=== PATIENT | male | born 1995 | race Caucasian/White ===

== ENCOUNTER 2021-04-05 16:00 | Outpatient (CLI) | payer OTHER, SELFPAY ==
[2021-04-05 16:26] LABS: SARS-CoV-2 Ag Negative (Negative)
== END 2021-04-05 16:01 | disposition home or self-care (01) ==
LOC: CHSLAB 16:07
PROVIDERS: PCP Physician Assistant; Visit Provider Physician Assistant
DX: Z20.822 Contact with and (suspected) exposure to COVID-19 (principal)
CPT/HCPCS: 87426; C9803

== ENCOUNTER 2021-04-06 00:43 | Emergency (ER) | payer SELFPAY ==
--- NOTE | ~2021-04-06 | XR_ITS ---
EXAMINATION: XR chest 1V portable DATE: 04/06/2021 01:15 INDICATION: Chest pain. TECHNIQUE: A single frontal view of the chest was obtained on 2 radiographs. COMPARISON: None. FINDINGS: The chest demonstrates clear lungs without pneumonia, pleural effusion, or pneumothorax. Th e heart size is normal. IMPRESSION: 1. No acute cardiopulmonary disease. Reviewed, dictated and finalized at location A.
[2021-04-06 01:00] VITALS: PULSE 63
--- NOTE | 2021-04-06 01:04 | ED.CHESTPAIN ---
HPI - Chest Pain General Chief Complaint: Chest Pain Stated Complaint: chest pain Time Seen by Provider: 04/06/21 01:04 Source: patient Mode of arrival: ambulatory Limitations: no limitations History of Present Illness HPI narrative: 25-year-old man was previously well comes in today complaining of sharp chest pain in his left lower chest that radiated to his left arm above the elbow. Patient states that it was severe but has since improved. It started about 4 hours ago. Patient states that yesterday he had some mild chest pain and noted that he has had a fever. He denies shortness of breath, nausea, vomiting, sore throat, nasal congestion, cough, abdominal pain, or known sick exposures. He states that he smokes marijuana and vapes but does not use alcohol, meth or cocaine. Patient states he has had some episodes of chest pain while running in the past. He denies syncopal episodes, lightheadedness or family history of sudden cardiac . MD complaint: chest pain Onset (ago): hour(s) (4) Timing of current episode: episodic Prior episodes: Yes Onset: during rest Pain location: left chest Pain radiation: left arm Severity: severe Quality: sharp Relieving factors: nothing Exacerbating factors: nothing Associated symptoms: fever Treatment prior to arrival: none Related Data Home Medications Medication Instructions Recorded Confirmed No Home Medications 04/06/21 04/06/21 Allergies Allergy/AdvReac Type Severity Reaction Status Date / Time No Known Allergies Allergy Verified 04/06/21 01:24 Review of Systems Review of Systems: All systems reviewed & are unremarkable except as noted in HPI and below Constitutional: Constitutional: Denies chills, Reports fatigue, Reports fever(s) and Denies weakness Eyes: Eyes: Denies change in vision and Denies photophobia ENT: Denies dysphagia, Denies nasal congestion and Denies sore throat Cardiovascular: Cardiovascular: Reports as per HPI, Reports chest pain and Reports radiating jaw, neck or arm pain Respiratory: Respiratory: Denies cough, Denies dyspnea and Denies wheezing Gastrointestinal: Gastrointestinal: Denies abdominal pain, Denies diarrhea, Denies nausea and Denies vomiting Genitourinary: Genitourinary: Denies dysuria and Denies urinary frequency Musculoskeletal: Musculoskeletal: Denies back pain, Denies arthralgias and Denies joint swelling Integumentary/Breasts: Skin/Breast: Denies pruritus, Denies erythema and Denies rash Neurologic: Denies vertigo, Denies dizziness and Denies syncope Hematologic/Lymphatic: Hematologic/Lymphatic: Denies easy bleeding and Denies easy bruising Allergic/Immunologic: Allergic/Immunologic: Denies lip swelling and Denies throat swelling [facility] Social History Social History (Updated 04/06/21 @ 01:17 by Eric Huerta MD) Smoking status: Former smoker Tobacco type: e-cigarettes/vaping Alcohol intake: never Substance use: current Substance use type: marijuana Exam Const: General: healthy appearing and alert Orientation/consciousness: patient oriented x3 Limitations: no limitations Other: Mildly anxious HENMT: Head: normal to inspection Ears: external ears normal, TM's normal bilaterally and EAC's normal General nose exam: Normal nares present Face and sinus: normal facial exam Mouth: Yes moist mucous membranes Throat: posterior oropharynx normal Eyes: Conjunctivae: conjunctivae normal EOM: EOMs intact bilaterally Neck: Neck: normal visual inspection and no lymphadenopathy Other: no crepitus or swelling Resp: Effort & Inspection: normal respiratory effort and not labored Auscultation: clear to auscultation bilaterally, no rales, no rhonchi and no wheezes Cardio: Rate: regular rate Rhythm: regular rhythm Heart sounds: no murmurs GI: Inspection: non-distended Auscultation: normal bowel sounds Other: nontender Skin: General skin exam: normal color, no jaundice and no pallor Rashes: no
--- NOTE | 2021-04-06 01:05 | ECG_ITS ---
Measurements Intervals [place] Rate: 58 P: -10 MA: 126 QRS: 43 QRSD: 108 T: 53 QT: 373 QTc: 367 Interpretive Statements SINUS BRADYCARDIA WITH MARKED SINUS ARRHYTHMIA INCOMPLETE RIGHT BUNDLE BRANCH BLOCK PEAKED T WAVES- CONSIDER HYPERKALEMIA OR ISCHEMIA ABNORMAL ECG Electronically Signed On 04-06-2021 10:01:29 CDT by Jayson Miranda D.O.
[2021-04-06 01:20] VITALS: BP 147/94; PULSE 61; RESP 18; TEMP 36.7; O2SAT 99
[2021-04-06 01:50] LABS: Basophils Absolute Auto 0.07 K/mm3 (0.00-0.10); Basophils Percent Auto 0.8 % (0.0-1.0); Eosinophils Percent Auto 5.7 % (1.0-6.0); Hematocrit 45.2 % (40.0-54.0); Immature Granulocyte Absolute 0.03 K/mm3 (0.00-0.00); Immature Granulocyte Percent A 0.3 % (0.0-0.0); Lymphocytes Absolute Auto 1.76 K/mm3 (1.10-4.50); Lymphocytes Percent Auto 20.2 % (18.0-42.0); Mean Corpuscular HGB Conc 35.4 g/dL (32.0-36.0); Mean Corpuscular Hemoglobin 29.4 pg (27.0-31.0); Mean Corpuscular Volume 82.9 fL (78.0-102.0); Mean Platelet Volume 10.6 fl (8.7-11.0); Monocytes Absolute Auto 0.57 K/mm3 (0.10-0.90); Monocytes Percent Auto 6.5 % (2.0-11.0); Neutrophils Absolute Auto 5.8 K/mm3 (1.7-7.2); Neutrophils Percent Auto 66.5 % (50.0-70.0); Platelet Count Result 202 K/mm3 (150-420); Red Blood Count 5.45 M/mm3 (4.70-6.10); Red Cell Distribution Width 12.2 % (11.6-14.4); White Blood Count 8.7 K/mm3 (4.8-10.8)
[2021-04-06 01:58] LABS: Alanine Aminotransferase 18 U/L (16-63); Albumin Level 4.7 g/dL (3.4-5.0); Alkaline Phosphatase 56 U/L (46-116); Anion Gap 12 mmol/L (8-16); Aspartate Amino Transferase < 10 U/L (15-37); Blood Urea Nitrogen 15 mg/dL (7-18); Calcium 9.8 mg/dL (8.5-10.1); Carbon Dioxide 27 mmol/L (21-32); Chloride 99 mmol/L (98-108); Estimated CRCL calculation 95 ml/min; Estimated Glomerular Filt Rate > 60; Glucose 86 mg/dL (70-99); Lactic Acid Reflex 0.9 mmol/L (0.4-2.0); Lipase 38 U/L (73-393); Osmolality Calculated 285 mOsm/kg (285-295); Potassium 3.4 mmol/L (3.5-5.1); Sodium 138 mmol/L (136-145); Total Protein 8.6 g/dL (6.4-8.2)
[2021-04-06 01:59] LABS: Troponin I < 4.0 ng/L (0.00-60.4)
[2021-04-06 02:01] LABS: D Dimer 0.19 mg/L (0.19-0.50); INR 1.1; Prothrombin Time 11.8 Seconds (9.50-12.10)
[2021-04-06 02:15] LABS: Influenza A QL RT-PCR Negative (Negative); Influenza B QL RT-PCR Negative (Negative); SARS-CoV-2 RNA PCR Negative (Negative)
[2021-04-06 02:43] LABS: Add Urine Microscopic? YES; Appearance Urine Clear (Clear); Bilirubin Urine 1+ (Negative); Blood Urine Negative (Negative); Color Urine Yellow (Yellow); Glucose Urine UA Negative (Negative); Ketones Urine 3+ (Negative); Leukocyte Esterase Ur Trace LEU/UL (Negative); Nitrate Urine Negative (Negative); Protein Urine Negative (Negative); Specific Grav Ur 1.025 (1.010-1.020)
[2021-04-06 02:50] LABS: Bacteria Urine 1+ /hpf; Mucus Urine Moderate /lpf; RBC Urine 0-2 /hpf (0-2)
[2021-04-06 02:54] LABS: Amphetamine Screen Urine Negative (Negative); Barbiturate Screen Urine Negative (Negative); Benzodiazepines Screen Urine Negative (Negative); Cannabinoid Screen Urine Positive (Negative); Cocaine Screen Urine Positive (Negative); Methadone Screen Urine Negative (Negative); Opiate Screen Urine Negative (Negative); Phencyclidine Screen Urine Negative (Negative)
[2021-04-06 03:05] VITALS: BP 120/80; PULSE 65; RESP 20; TEMP 36.6; O2SAT 99
--- NOTE | 2021-04-06 09:56 | PC.NURSE ---
Dr. Huerta requests to call pt this am to have him schedule an o/p echocardiogram. Dr. Huerta sent order over for this test. Attempted to call pt by calling phone number pt provided. Attempted x 2 to reach pt without success. Pts phone number that he provided is disconnected.
--- NOTE | 2021-04-06 10:00 | PC.NURSE ---
attempted to contact emergency contact to get in touch with pt and attempted pmd office without success.
== END 2021-04-06 03:11 | disposition home or self-care (01) ==
PROVIDERS: Emergency Provider Emergency Medicine; PCP Physician Assistant
DX: R07.89 Other chest pain (principal); R50.9 Fever, unspecified; Z20.822 Contact with and (suspected) exposure to COVID-19
CPT/HCPCS: 36415; 71045; 80053; 80307; 81001; 83605; 83690; 84484; 85025; 85380; 85610; 85730; 87040; 87502; 93005; 99283; 99284; C9803; U0003; U0005

== ENCOUNTER 2021-10-26 10:15 | Outpatient (CLI) | payer SELFPAY ==
--- NOTE | ~2021-10-26 | MR_ITS ---
EXAMINATION: MR shoulder LT wo con DATE: 10/26/2021 12:05 INDICATION: Left shoulder pain post shoulder dislocation. TECHNIQUE: Magnetic resonance imaging (MRI) of the left shoulder was performed without intravenous co ntrast. Sequences included axial PD-weighted FS FSE, coronal oblique PD-weighted FS FSE, coronal obli que T2-weighted FS FSE, sagittal PD-weighted FS FSE, and sagittal T1-weighted SE. COMPARISON: None. FINDINGS: Coracoacromial arch: The acromion undersurface is curved in morphology (type II). The coracoacromial ligament is normal. T here is mild soft tissue edema surrounding the otherwise normal appearing acromioclavicular joint whi ch could represent sequela of a subacute low-grade chromic clavicular joint separation. The coracocla vicular ligament is normal. Rotator cuff: The supraspinatus, infraspinatus and teres minor tendons are normal. The subscapularis tendon is norm al. Normal rotator cuff muscle bulk and signal. Biceps tendon, glenoid labrum and glenohumeral cartilage: Long head of the biceps tendon is normal. Glenoid labrum is normal. Glenohumeral cartilage is normal. Fluid: Physiologic amount of fluid in the glenohumeral joint and biceps tendon sheath. No loose osteochondra l bodies. No abnormal fluid signal at the subacromial/subdeltoid bursa to suggest bursitis. Bones: Normal marrow signal with no edema, fracture or abnormal marrow replacing process. IMPRESSION: 1. Soft tissue edema surrounding the otherwise normal acromioclavicular joint which is suspicious for recent low-grade acromioclavicular joint separation. Otherwise unremarkable left shoulder MRI. Reviewed, dictated and finalized at location B. GER OF PATIENT IMPRESSION: 1. Soft tissue edema surrounding the otherwise normal acromioclavicular joint w hich is suspicious for recent low-grade acromioclavicular joint separation. Oth erwise unremarkable left shoulder MRI.
== END 2021-10-26 10:16 | disposition home or self-care (01) ==
LOC: CHSIMG 10:18
PROVIDERS: PCP Physician Assistant; Visit Provider Physician Assistant
DX: S43.015A Anterior dislocation of left humerus, initial encounter (principal)
CPT/HCPCS: 73221

== ENCOUNTER 2022-05-30 22:54 | Emergency (ER) | payer SELFPAY ==
--- NOTE | ~2022-05-30 | XR_ITS ---
EXAMINATION: XR chest 1V portable DATE: 05/30/2022 23:29 INDICATION: Chest pain. TECHNIQUE: A single frontal view of the chest was obtained. COMPARISON: Chest single view 04/06/2021 FINDINGS: The chest demonstrates clear lungs without pneumonia, pleural effusion, or pneumothorax. Th e heart size is normal. IMPRESSION: 1. No acute cardiopulmonary disease. Reviewed, dictated and finalized at location A.
[2022-05-30 23:05] VITALS: BP 128/84; PULSE 80; RESP 18; TEMP 37; O2SAT 100
--- NOTE | 2022-05-30 23:13 | ED.CHESTPAIN ---
HPI - Chest Pain General Chief Complaint: Chest Pain Stated Complaint: chest pain Time Seen by Provider: 05/30/22 23:14 Source: patient Mode of arrival: ambulatory Limitations: no limitations History of Present Illness HPI narrative: 26-year-old male with a history of smoking/ vaping, marijuana use presents to the ER with -- left chest pain since last night. Pain was unprovoked and came on at rest. No radiation of the pain. No nausea/ vomiting. No shortness of breath. Pain is worse on deep breathing. MD complaint: chest pain Onset (ago): day(s) ( Started last night) Timing of current episode: constant Prior episodes: Yes Onset: during rest Pain location: left chest Pain radiation: none Severity: moderate Quality: sharp Relieving factors: nothing Exacerbating factors: nothing Treatment prior to arrival: none Risk Factors Coronary artery disease risk factors: smoking history Thoracic aortic dissection risk factors: none Related Data Home Medications Medication Instructions Recorded Confirmed No Home Medications 04/06/21 05/30/22 Allergies Allergy/AdvReac Type Severity Reaction Status Date / Time No Known Allergies Allergy Verified 04/06/21 01:24 Review of Systems Review of Systems: All systems reviewed & are unremarkable except as noted in HPI and below Constitutional: Constitutional: Reports as per HPI and Reports no additional constitutional complaints Eyes: Eyes: Reports as per HPI and Reports no additional eye complaints ENT: Reports system reviewed and no additional complaints, except as documented and Reports as per HPI Cardiovascular: Cardiovascular: Reports as per HPI, Reports no additional cardiovascular complaints and Reports chest pain Respiratory: Respiratory: Reports as per HPI and Reports no additional respiratory complaints Gastrointestinal: Gastrointestinal: Reports as per HPI and Reports no additional gastrointestinal complaints Genitourinary: Genitourinary: Reports no additional male genitourinary complaints and Reports as per HPI Musculoskeletal: Musculoskeletal: Reports no additional musculoskeletal complaints and Reports as per HPI Integumentary/Breasts: Skin/Breast: Reports system reviewed and no additional complaints, except as docu and Reports as per HPI Neurologic: Reports system reviewed and no additional complaints, except as documented and Reports as per HPI Psychiatric: Psychiatric: Reports no additional psychiatric complaints and Reports as per HPI Endocrine: Endocrine: Reports no additional endocrine complaints and Reports as per HPI Hematologic/Lymphatic: Hematologic/Lymphatic: Reports no additional hematologic/lymphatic complaints and Reports as per HPI Allergic/Immunologic: Allergic/Immunologic: Reports no additional allergic/immunologic complaints and Reports as per [facility] Social History Social History Smoking status: Former smoker Tobacco type: e-cigarettes/vaping Alcohol intake: never Substance use: current Substance use type: marijuana Exam Const: General: no acute distress Nutritional Appearance: thin Orientation/consciousness: patient oriented x3 Limitations: no limitations HENMT: Head: normal to inspection Ears: external ears normal General nose exam: Normal external nose present Face and sinus: normal facial exam Mouth: Yes Normal oral and palatal mucosa present Throat: posterior oropharynx normal Eyes: Conjunctivae: conjunctivae normal Pupils: Equal, round and reactive pupils present EOM: EOMs intact bilaterally Direct Ophthalmoscopy: no photophobia Neck: Neck: normal visual inspection, no lymphadenopathy and no meningeal signs Chest: Chest palpation & inspection: normal inspection of the chest and tenderness Other: tenderness over the left 3/4 costochondral junction Resp: Effort & Inspection: normal respiratory effort Auscultation: clear to auscultation bilateral
--- NOTE | 2022-05-30 23:21 | ECG_ITS ---
Measurements Intervals [place] Rate: 65 P: -15 CT: 137 QRS: 21 QRSD: 105 T: 30 QT: 356 QTc: 371 Interpretive Statements SINUS RHYTHM INCOMPLETE RIGHT BUNDLE BRANCH BLOCK ST ELEVATION IN DIFFUSE LEADS- PROBABLY EARLY REPOLARIZATION ABNORMALITY BORDERLINE ECG Electronically Signed On 05-31-2022 6:02:01 CDT by Jayson Miranda D.O.
[2022-05-30 23:39] LABS: Basophils Absolute Auto 0.04 K/mm3 (0.00-0.10); Basophils Percent Auto 0.6 % (0.0-1.0); Eosinophils Absolute Auto 0.16 K/mm3 (0.02-0.50); Eosinophils Percent Auto 2.2 % (1.0-6.0); Hematocrit 39.2 % (40.0-54.0); Hemoglobin 13.9 g/dL (14.0-18.0); Immature Granulocyte Absolute 0.02 K/mm3 (0.00-0.00); Immature Granulocyte Percent A 0.3 % (0.0-0.0); Lymphocytes Absolute Auto 1.62 K/mm3 (1.10-4.50); Lymphocytes Percent Auto 22.4 % (18.0-42.0); Mean Corpuscular HGB Conc 35.5 g/dL (32.0-36.0); Mean Corpuscular Hemoglobin 30.2 pg (27.0-31.0); Mean Corpuscular Volume 85.2 fL (78.0-102.0); Mean Platelet Volume 10.7 fl (8.7-11.0); Monocytes Absolute Auto 0.47 K/mm3 (0.10-0.90); Monocytes Percent Auto 6.5 % (2.0-11.0); Neutrophils Absolute Auto 4.9 K/mm3 (1.7-7.2); Platelet Count Result 175 K/mm3 (150-420); Red Cell Distribution Width 12.3 % (11.6-14.4); White Blood Count 7.2 K/mm3 (4.8-10.8)
[2022-05-30] MEDS: ASPIRIN 81 MG CHEWABLE TABLET 324 MG PO (23:49)
[2022-05-30 23:50] VITALS: BP 120/74; PULSE 78; RESP 18; O2SAT 100
[2022-05-30 23:58] LABS: Alanine Aminotransferase 20 U/L (16-63); Albumin Level 4.2 g/dL (3.4-5.0); Alkaline Phosphatase 48 U/L (46-116); Anion Gap 6 mmol/L (8-16); Aspartate Amino Transferase 10 U/L (15-37); Bilirubin,Total 0.5 mg/dL (0.00-1.00); Blood Urea Nitrogen 20 mg/dL (7-18); Calcium 9.2 mg/dL (8.5-10.1); Carbon Dioxide 30 mmol/L (21-32); Chloride 103 mmol/L (98-108); Estimated CRCL calculation 93 ml/min; Estimated Glomerular Filt Rate > 60; Glucose 86 mg/dL (70-99); Osmolality Calculated 289 mOsm/kg (285-295); Potassium 3.6 mmol/L (3.5-5.1); Sodium 139 mmol/L (136-145); Total Protein 7.5 g/dL (6.4-8.2); Troponin I 6.1 ng/L (0.00-60.4)
[2022-05-31] MEDS: KETOROLAC 30 MG/ML VIAL (*BKC) IM (00:30)
[2022-05-31 00:40] VITALS: BP 122/72; PULSE 74; RESP 18; TEMP 36.4; O2SAT 99
== END 2022-05-31 00:47 | disposition home or self-care (01) ==
PROVIDERS: Emergency Provider Internal Medicine Critical Care Medicine; PCP Physician Assistant
DX: M94.0 Chondrocostal junction syndrome [Tietze] (principal); R07.89 Other chest pain
CPT/HCPCS: 36415; 71045; 80053; 84484; 85025; 93005; 96372; 99284; A9270; J1885

== ENCOUNTER 2022-07-15 20:12 | Emergency (ER) | payer SELFPAY ==
--- NOTE | ~2022-07-15 | XR_ITS ---
EXAMINATION: XR ribs LT 2V w CXR 2V DATE: 07/15/2022 21:03 INDICATION: Left anterior mid to lower chest/rib pain TECHNIQUE: A frontal and lateral views of the chest and 3 views of the left ribs were obtained. COMPARISON: Chest radiograph dated FINDINGS: No rib fractures identified. No pneumothorax. No focal infiltrates, pleural effusion or pulmonary clair ma. Cardiomediastinal silhouette is normal. IMPRESSION: 1. Normal chest and rib radiographs. Reviewed, dictated and finalized at location A.
--- NOTE | 2022-07-15 20:15 | ED.GENADULT ---
HPI - General Adult General Chief complaint: Unspecified Stated complaint: ambulance Time Seen by Provider: 07/15/22 20:14 Source: patient, EMS and RN notes reviewed Mode of arrival: EMS Limitations: no limitations History of Present Illness HPI narrative: patient states he was at work when he had sudden onset of left lateral rib pain. Seemed to make him nauseous and feel dizzy. He said he felt hot he called an ambulance to come in for further evaluation. He said the pain made him feel short of breath. He denies any chest pain. He had 1 similar episode about 6 weeks ago was given some Toradol and told to stop smoking. He continues to vape and smoke marijuana daily. complaint: Left rib pain Onset (ago): hour(s) (2) Location: chest Severity: moderate Quality: stabbing and dull Pain Consistency: constant Relieving factors: none Exacerbating factors: none Associated symptoms: shortness of breath ( hurts to take a deep breath) Treatments prior to arrival: none Related Data Allergies Allergy/AdvReac Type Severity Reaction Status Date / Time No Known Allergies Allergy Verified 07/15/22 20:16 Review of Systems Review of Systems: All systems reviewed & are unremarkable except as noted in HPI and below Constitutional: Constitutional: Denies chills and Denies fever(s) Respiratory: Respiratory: Denies cough PMFSH Past Medical History Medical History (Updated 07/15/22 @ 21:12 by Dung Monroe MD) No active medical problems Surgical History Surgical History (Updated 07/15/22 @ 20:29 by Dung Monroe MD) No pertinent past surgical history Social History Social History Smoking status: Former smoker Tobacco type: e-cigarettes/vaping Alcohol intake: never Substance use: current Substance use type: marijuana Exam Const: General: healthy appearing, no acute distress and alert; No diaphoretic Nutritional Appearance: well nourished Orientation/consciousness: patient oriented x3 Limitations: no limitations HENMT: Head: normal to inspection Ears: external ears normal Eyes: Conjunctivae: conjunctivae normal Pupils: Equal, round and reactive pupils present EOM: EOMs intact bilaterally Neck: Neck: normal visual inspection Chest: Chest palpation & inspection: tenderness rib (Moderate) left mid-axillary line involving the 5th rib, involving the 6th rib and involving the 7th rib, left posterior-axillary line involving the 5th rib, involving the 6th rib and involving the 7th rib Resp: Effort & Inspection: normal respiratory effort Auscultation: clear to auscultation bilaterally Cardio: Rate: regular rate Rhythm: regular rhythm GI: GI Palp: Yes Soft to palpation and No Tenderness to palpation present (GI) Auscultation: normal bowel sounds Back/Spine/Pelvis: Cervical Spine: cervical ROM normal Thoracic/Lumbar Spine: thoraco-lumbar ROM normal Skin: General skin exam: normal color Rashes: no rashes Neuro: General: patient oriented x3, moves all extremities, no focal motor deficits and CN's II-XI intact bilaterally Speech: normal speech Gait exam (Neuro): Normal gait present Extrem: General: normal to inspection and no clubbing, cyanosis or edema Psych: Mental Status: mental status grossly normal Affect: normal affect Attitude: cooperative Medical Decision Making Differential Diagnosis Differential Diagnosis: I considered pneumonia, costochondritis, pleurisy, UTI, kidney stone. Discharge Plan Discharge Clinical Impression: Acute UTI Patient Disposition: Home, Self-Care Condition: Stable Instructions: Antibiotic Form, Urinary Tract Infection in Men (ED) Additional Instructions: use Tylenol and or Motrin as needed for pain. Follow-up with your primary care physician any worsening symptoms. Prescriptions: New sulfamethoxazole-trimethoprim [Bactrim DS] 800-160 mg tablet 1 tablet PO Q12H 5 Days Qty: 10 0RF Fo
[2022-07-15 20:20] VITALS: BP 117/68; PULSE 83; RESP 16; TEMP 36.4; O2SAT 100
[2022-07-15 20:30] VITALS: BP 120/80; PULSE 74; RESP 16; O2SAT 98
--- NOTE | 2022-07-15 20:30 | PC.NURSE ---
PT UP TO RR WITHOUT DIFFICULTY, PT DENIES ANY URINARY SX. PT RETURNS TO EXAM ROOM, MONITOR RE APPLIED, CALL LIGHT IN REACH, WATER PROVIDED. NAD NOTED. LAB AT BEDSIDE. WILL CONTINUE TO MONITOR.
[2022-07-15] MEDS: KETOROLAC 30 MG/ML VIAL (*BKC) IM (20:35)
[2022-07-15 20:41] LABS: Add Urine Microscopic? YES; Appearance Urine Clear (Clear); Bilirubin Urine Negative (Negative); Blood Urine Negative (Negative); Color Urine Light Yellow (Yellow); Glucose Urine UA Negative (Negative); Ketones Urine Negative (Negative); Leukocyte Esterase Ur 1+ LEU/UL (Negative); Nitrate Urine Negative (Negative); Protein Urine Negative (Negative); Urobilinogen Urine 0.2 mg/dL (0.2-1.0)
[2022-07-15 20:41] LABS: Basophils Absolute Auto 0.06 K/mm3 (0.00-0.10); Basophils Percent Auto 0.7 % (0.0-1.0); Eosinophils Absolute Auto 0.16 K/mm3 (0.02-0.50); Hematocrit 38.2 % (40.0-54.0); Hemoglobin 13.6 g/dL (14.0-18.0); Immature Granulocyte Absolute 0.02 K/mm3 (0.00-0.00); Immature Granulocyte Percent A 0.2 % (0.0-0.0); Lymphocytes Absolute Auto 1.99 K/mm3 (1.10-4.50); Lymphocytes Percent Auto 24.8 % (18.0-42.0); Mean Corpuscular HGB Conc 35.6 g/dL (32.0-36.0); Mean Corpuscular Hemoglobin 30.1 pg (27.0-31.0); Mean Corpuscular Volume 84.5 fL (78.0-102.0); Mean Platelet Volume 10.3 fl (8.7-11.0); Monocytes Absolute Auto 0.55 K/mm3 (0.10-0.90); Monocytes Percent Auto 6.9 % (2.0-11.0); Neutrophils Absolute Auto 5.2 K/mm3 (1.7-7.2); Neutrophils Percent Auto 65.4 % (50.0-70.0); Platelet Count Result 176 K/mm3 (150-420); Red Blood Count 4.52 M/mm3 (4.70-6.10); Red Cell Distribution Width 12.2 % (11.6-14.4)
[2022-07-15 20:48] LABS: RBC Urine 0-2 /hpf (0-2)
[2022-07-15 20:49] LABS: Bacteria Urine Trace /hpf; Squamous Epithelial Cell Urine Rare /hpf (Few)
[2022-07-15 20:56] LABS: Alanine Aminotransferase 20 U/L (16-63); Albumin Level 4.6 g/dL (3.4-5.0); Alkaline Phosphatase 48 U/L (46-116); Anion Gap 7 mmol/L (8-16); Aspartate Amino Transferase 14 U/L (15-37); Bilirubin,Total 0.4 mg/dL (0.00-1.00); Blood Urea Nitrogen 17 mg/dL (7-18); CRP < 0.2 mg/dL (0.0-0.9); Calcium 8.9 mg/dL (8.5-10.1); Carbon Dioxide 27 mmol/L (21-32); Chloride 103 mmol/L (98-108); Estimated CRCL calculation 89 ml/min; Estimated Glomerular Filt Rate > 60; Glucose 94 mg/dL (70-99); Magnesium 1.9 mg/dL (1.8-2.4); Osmolality Calculated 285 mOsm/kg (285-295); Potassium 3.4 mmol/L (3.5-5.1); Sodium 137 mmol/L (136-145); Total Protein 7.8 g/dL (6.4-8.2)
[2022-07-15] MEDS: SULFAMETHOXAZOLE/TRIMETHOPRIM 800/160 MG DS TABLET 1 TAB PO (21:18)
[2022-07-15 21:27] VITALS: BP 116/79; PULSE 66; RESP 16; O2SAT 99
== END 2022-07-15 21:30 | disposition home or self-care (01) ==
PROVIDERS: Emergency Provider Emergency Medicine; PCP Physician Assistant
DX: N39.0 Urinary tract infection, site not specified (principal)
CPT/HCPCS: 36415; 71046; 71100; 80053; 81001; 83735; 85025; 86140; 87086; 96372; 99283; A9270; J1885

== ENCOUNTER 2022-08-28 21:39 | Emergency (ER) | payer SELFPAY ==
[2022-08-28 21:51] VITALS: BP 129/87; PULSE 73; RESP 20; TEMP 36.8; O2SAT 99
[2022-08-28] MEDS: methylPREDNISolone SOD SUCC 125 MG VIAL IM (22:13)
[2022-08-28] MEDS: diphenhydrAMINE HCl CAP 25 MG CAPSULE 50 MG PO (22:13)
[2022-08-28] MEDS: cefTRIAXone 1 GM, LIDOCAINE HCL 1% LOCAL INJ 2.1 ML IM (22:13)
--- NOTE | 2022-08-28 22:18 | ED.GENADULT ---
HPI - General Adult General Chief complaint: Wound/Laceration Stated complaint: rash, facial swelling, wound on finger Time Seen by Provider: 08/28/22 21:43 Source: patient and RN notes reviewed Mode of arrival: ambulatory Limitations: no limitations History of Present Illness complaint: mild facial swelling and right eyelid redness and swelling + az right 5th Onset (ago): day(s) (3) Location: face and right (right 5th finger dorsal redness and pustules) Radiation: non-radiation Severity scale (1-10): 3 Quality: other (mild facial rash itching and redness) Pain Consistency: other (pain-free) Relieving factors: none Exacerbating factors: none Associated symptoms: rash Treatments prior to arrival: none Related Data Allergies Allergy/AdvReac Type Severity Reaction Status Date / Time No Known Allergies Allergy Verified 07/15/22 20:16 Review of Systems Review of Systems: All systems reviewed & are unremarkable except as noted in HPI and below Constitutional: Constitutional: Reports no additional constitutional complaints Eyes: Eyes: Reports no additional eye complaints ENT: Reports system reviewed and no additional complaints, except as documented Cardiovascular: Cardiovascular: Reports no additional cardiovascular complaints Respiratory: Respiratory: Reports no additional respiratory complaints Gastrointestinal: Gastrointestinal: Reports no additional gastrointestinal complaints Musculoskeletal: Musculoskeletal: Reports no additional musculoskeletal complaints Integumentary/Breasts: Skin/Breast: Reports system reviewed and no additional complaints, except as docu Neurologic: Reports system reviewed and no additional complaints, except as documented Psychiatric: Psychiatric: Reports no additional psychiatric complaints Endocrine: Endocrine: Reports no additional endocrine complaints Hematologic/Lymphatic: Hematologic/Lymphatic: Reports no additional hematologic/lymphatic complaints Allergic/Immunologic: Comments: facial rash swelling and redness,right eyelid redness and swelling PMFSH Past Medical History Medical History Cellulitis of hand Eczema Eczema of face No active medical problems Surgical History Surgical History No pertinent past surgical history Social History Social History Smoking status: Former smoker Tobacco type: e-cigarettes/vaping Alcohol intake: never Substance use: current Substance use type: marijuana Exam Const: General: no acute distress and well nourished Nutritional Appearance: well nourished Orientation/consciousness: patient oriented x3 Limitations: no limitations HENMT: Head: normal to inspection Ears: external ears normal, TM's normal bilaterally and EAC's normal Face/Nose/Sinus: Normal external nose present, Normal nares present, normal facial exam and sinuses nontender Face and sinus: normal facial exam and sinuses nontender Mouth: Yes Normal oral and palatal mucosa present and Yes moist mucous membranes Teeth and gingiva: dentition normal Throat: posterior oropharynx normal Other: mild generalized facial rash with right-sided redness and right upper lid redness and swelling Eyes: Conjunctivae: conjunctivae normal Pupils: Equal, round and reactive pupils present EOM: EOMs intact bilaterally Other: vision wnl. Neck: Neck: normal visual inspection, no lymphadenopathy and no meningeal signs Chest: Chest palpation & inspection: normal inspection of the chest Resp: Effort & Inspection: normal respiratory effort Auscultation: clear to auscultation bilaterally Cardio: Rate: regular rate Rhythm: regular rhythm GI: GI Palp: Yes Soft to palpation and No Tenderness to palpation present (GI) Auscultation: normal bowel sounds : General: Yes bladder normal to palpation and Yes no C
[2022-08-28 22:29] VITALS: BP 122/71; PULSE 74; RESP 18; O2SAT 99
== END 2022-08-28 22:36 | disposition home or self-care (01) ==
PROVIDERS: Emergency Provider Emergency Medicine; PCP Physician Assistant
DX: L30.9 Dermatitis, unspecified (principal); L03.113 Cellulitis of right upper limb; Z87.891 Personal history of nicotine dependence
CPT/HCPCS: 96372; 99284; A9270; J0696; J2930

== ENCOUNTER 2024-06-24 22:45 | Emergency (ER) | payer SELFPAY ==
[2024-06-24 22:49] VITALS: BP 136/83; PULSE 74; RESP 18; TEMP 36.4; O2SAT 100
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
[2024-06-24] MEDS: CEPHALEXIN 500 MG CAPSULE PO (23:14)
[2024-06-24] MEDS: TETANUS,DIPHTHERIA,AC PERTUSSIS ADULT 0.5 ML (ADACEL) IM (23:15)
[2024-06-24] MEDS: NEOMYCIN/POLYMYXIN/BACITRACIN OINTMENT 15 GM TUBE 1 APPLIC TOPICAL (23:15)
[2024-06-24 23:26] VITALS: BP 130/74; PULSE 84; RESP 18; O2SAT 98
== END 2024-06-24 23:26 | disposition home or self-care (01) ==
PROVIDERS: Emergency Provider Emergency Medicine; PCP Physician Assistant
DX: T23.222A Burn of second degree of single left finger (nail) except thumb, initial encounter (principal); T31.0 Burns involving less than 10% of body surface; T79.8XXA Other early complications of trauma, initial encounter; L03.012 Cellulitis of left finger; Z87.891 Personal history of nicotine dependence; X15.0XXA Contact with hot stove (kitchen), initial encounter; Z23 Encounter for immunization
CPT/HCPCS: 90471; 90715; 99283; A9270

== ENCOUNTER 2024-08-06 15:58 | Outpatient (CLI) | payer SELFPAY ==
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
== END 2024-08-06 15:59 | disposition home or self-care (01) ==
PROVIDERS: PCP Physician Assistant
DX: T14.8XXA Other injury of unspecified body region, initial encounter (principal)
CPT/HCPCS: 73120